=== PATIENT | male | born 1955 | race Caucasian/White ===

== ENCOUNTER → 2023-12-07 06:35 | Outpatient (REF) | payer BC, SELFPAY | LOC: HWRAD 06:35 | PROVIDERS: ATTENDING PHYSICIAN Podiatrist Foot & Ankle Surgery; FAMILY PHYSICIAN Physician Assistant Medical | DX: S92.512G Displaced fracture of proximal phalanx of left lesser toe(s), subsequent encounter for fracture with delayed healing (principal) | CPT/HCPCS: 73630 ==

== ENCOUNTER → 2024-01-10 07:02 | Outpatient (REF) | payer BC, SELFPAY | LOC: HWRAD 07:02 | PROVIDERS: ATTENDING PHYSICIAN Podiatrist Foot & Ankle Surgery; FAMILY PHYSICIAN Physician Assistant Medical | DX: S92.512G Displaced fracture of proximal phalanx of left lesser toe(s), subsequent encounter for fracture with delayed healing (principal) | CPT/HCPCS: 73630 ==

== ENCOUNTER → 2024-04-25 07:04 | Outpatient (REF) | payer BC, SELFPAY | LOC: HWRAD 07:04 | PROVIDERS: ATTENDING PHYSICIAN Podiatrist Foot & Ankle Surgery; FAMILY PHYSICIAN Physician Assistant Medical | DX: M20.42 Other hammer toe(s) (acquired), left foot (principal); M20.62 Acquired deformities of toe(s), unspecified, left foot | CPT/HCPCS: 73630 ==

== ENCOUNTER → 2024-07-18 07:47 | Outpatient (REF) | payer BC, SELFPAY | LOC: HWRAD 07:47 | PROVIDERS: ATTENDING PHYSICIAN Physician Assistant Medical | DX: M85.88 Other specified disorders of bone density and structure, other site (principal) | CPT/HCPCS: 77080 ==